=== PATIENT | female | born 1975 | race Caucasian/White ===

== ENCOUNTER 2019-04-09 17:33 | Emergency (ER) | payer MEDICAID ==
[2019-04-09] MEDS ORDERED: oxyCODONE 5 MG TABLET PO STA (18:02)
--- NOTE | 2019-04-09 18:03 | ED Physician Documentation ---
PD HPI UPPER EXT INJURY - Stated complaint Stated Complaint: LT ARM/HAND INJURY - Chief complaint Chief Complaint: Ext Problem - History obtained from History obtained from: Patient - History of Present Illness Location: Left (Slipped and fell 2 nights ago under her left side. Hitting concrete with her left hand and wrist and has severe pain over the medial metacarpals of the left hand, the pinky finger, and the wrist. No other injuries.) Review of Systems Constitutional: reports: Reviewed and negative Cardiac: reports: Reviewed and negative Respiratory: reports: Reviewed and negative PD PAST MEDICAL HISTORY - Present Medications Home Medications: Ambulatory Orders Medication Instructions Recorded Confirmed Oxycodone HCl/Acetaminophen 1 - 2 each PO Q6H PRN #14 tablet 04/09/19 [Percocet 5-325 mg Tablet] - Allergies Allergies/Adverse Reactions: Allergies Allergy/AdvReac Type Severity Reaction Status Date / Time ibuprofen Allergy Emesis Verified 04/09/19 17:44 PD ED PE NORMAL - Vitals Vital signs reviewed: Yes - General General: Alert and oriented X 3, No acute distress - HEENT HEENT: PERRL, EOMI - Neck Neck: Supple, no meningeal sign, No bony TTP - Extremities Extremities: Other (She is quite tender and swollen over the proximal phalanx of the left pinky, also a lot of swelling over the fourth and fifth metacarpals of the left hand and mild tenderness over the carpals and dorsal wrist.) - Neuro Neuro: Alert and oriented X 3, Normal speech Results - Vitals Vitals: Vital Signs - 24 hr 04/09/19 04/09/19 17:42 18:59 Temperature 37.0 C Heart Rate 82 79 Respiratory 18 18 Rate Blood Pressure 134/81 H 137/88 H O2 Saturation 98 99 Oxygen O2 Source Room air PD MEDICAL DECISION MAKING - ED course ED course: 43-year-old woman had a trip and fall, injuries to the left hand and wrist. Relevant x-rays were negative interpreted contemporaneously by me. Placed in a Velcro wrist splint in the fourth and fifth fingers on the left were paty taped for comfort. Departure - Departure Disposition: 01 Home, Self Care Clinical Impression: Sprain of finger of left hand Qualifiers: Encounter type: initial encounter Finger: little finger Sprain of finger site: interphalangeal joint Qualified Code(s): S63.637A - Sprain of interphalangeal joint of left little finger, initial encounter Left wrist sprain Qualifiers: Encounter type: initial encounter Qualified Code(s): S63.502A - Unspecified sprain of left wrist, initial encounter Condition: Good Record reviewed to determine appropriate education?: Yes Instructions: ED Sprain Finger Prescriptions: Oxycodone HCl/Acetaminophen [Percocet 5-325 mg Tablet] 1 - 2 each PO Q6H PRN #14 tablet PRN Reason: pain Comments: Recheck with your doctor in a week if not improving, return for new worsening symptoms. Do not drink or drive while taking narcotic pain medication. Note that many narcotic pain relievers also contain Tylenol/acetaminophen. Please ensure that your total dose of acetaminophen from all sources does not exceed 3 g (3000 mg) per day. You may get constipated while on this medication. Take a stool softener such as Colace twice a day while you are on it. Also add an [id number] laxative such as senna or MiraLAX on any day that you do not have a bowel movement. If you received a narcotic pain medication or sedative while in the emergency department, do not drive for the next 24 hours.
--- NOTE | 2019-04-09 18:52 | XRAY Report ---
Reason: fall, hand/wrist inj Procedure Date: 04/09/2019 Accession Number: [id number] / [id number] Procedure: XR - Wrist 4 View LT CPT Code: Final Report FULL RESULT: EXAM: LEFT WRIST RADIOGRAPHY EXAM DATE: 04/09/2019 06:28 PM. CLINICAL HISTORY: Fall, hand/wrist inj. COMPARISON: None. TECHNIQUE: 3 views. FINDINGS: Bones: Normal. No fractures or bone lesions. Joints: Normal. No subluxations. Soft Tissues: Normal. No soft tissue swelling. IMPRESSION: No acute dispaced fracture or malalignment. [facility]
--- NOTE | 2019-04-09 18:55 | XRAY Report ---
Reason: fall, hand/wrist inj Procedure Date: 04/09/2019 Accession Number: [id number] / [id number] Procedure: XR - Hand 3 View LT CPT Code: Final Report FULL RESULT: EXAM: LEFT HAND RADIOGRAPHY EXAM DATE: 04/09/2019 06:28 PM. CLINICAL HISTORY: Fall. Hand/wrist injury. COMPARISON: None. TECHNIQUE: 3 views. FINDINGS: Bones: Normal. No fractures or bone lesions. Joints: Normal. No subluxations. Soft Tissues: Unremarkable. IMPRESSION: Normal hand radiography. [facility]
[2019-04-09 18:59] VITALS: BP 137/88
== END 2019-04-09 19:21 | disposition home or self-care (01) ==
LOC: ED 17:33
DX: S63.502A Unspecified sprain of left wrist, initial encounter (principal); S63.637A Sprain of interphalangeal joint of left little finger, initial encounter; W01.0XXA Fall on same level from slipping, tripping and stumbling without subsequent striking against object, initial encounter
CPT/HCPCS: 73110; 73130; 99283; A9270